=== PATIENT | male | born 1995 | race Asian ===

== ENCOUNTER 2016-12-24 18:29 | Emergency (ER) | payer OTHER ==
[~2016-12-24] VITALS: Ht 175 cm; Wt 69.1 kg
[~2016-12-24 18:29] MED LIST: AMOXICILLIN 50500 MG PO; AMOXICILLIN 8751 TAB PO; NORCO 325 MG-51 TAB PO; PEPCID 20MG TAB20 MG PO; PREDNISONE20 MG PO; ROBITUSSIN A-C S1 M1 PO; ZITHROMAX Z PA250 MG PO; ZYRTEC 10MG10 MG PO; [UNRECOGNIZED DRUG - REMARK]
[2016-12-24 18:36] VITALS: BP 115/60; PULSE 97; TEMP 98.9
[2016-12-24] MEDS ORDERED: NORCO 325 MG-51 TAB PO (19:56)
[2016-12-24] MEDS ORDERED: FLEXERIL 1010 MG/TAB PO (19:56)
== END 2016-12-24 20:12 | disposition home or self-care (01) ==
LOC: COL.ER 18:29
DX: M54.5 Low back pain (principal); X50.0XXA Overexertion from strenuous movement or load, initial encounter; Y93.B3 Activity, free weights
CPT/HCPCS: J1885; J2360

== ENCOUNTER → 2017-02-16 | Outpatient (CLI) | payer OTHER ==
[~2017-02-16] MED LIST changes: +FLEXERIL 1010 MG/TAB PO
== END ==
LOC: COL.RAD 08:27
DX: R10.13 Epigastric pain (principal); R11.0 Nausea
CPT/HCPCS: A9541

== ENCOUNTER 2018-07-14 21:20 | Emergency (ER) | payer OTHER ==
[~2018-07-14] VITALS: Ht 182 cm; Wt 75.0 kg
[2018-07-14 21:23] VITALS: TEMP 99.3
[2018-07-14 21:53] LABS: BASO # 0.1 (0.0-0.2); BASO % 1.1 % (0.0-2.0); EOS # 0.1 (0.0-0.7); EOS % 2.1 % (0-4.0); GRAN % 49.9 % (42.2-75.2); HEMATOCRIT 43.7 % (42.0-52.0); HEMOGLOBIN 14.9 g/dl (13.5-18.0); LYMPH # 2.4 (1.2-3.4); LYMPH % 39.5 % (20.0-51.0); MEAN CELL VOLUME 85 fl (80.0-100.0); MEAN CORPUSCULAR HEMOGLOBIN 29 pg (27.0-31.0); MEAN CORPUSCULAR HGB CONC 34 g/dl (33.0-37.0); MEAN PLATELET VOLUME 9.3 fl (7.4-10.4); MONO # 0.4 (0.1-0.6); MONO % 6.7 % (1.7-9.3); PLATELET COUNT 202 K/mm3 (130-400); RED BLOOD COUNT 5.12 M/mm3 (4.20-5.60); REDCELL DISTRIBUTION WIDTH-CV 12.5 % (11.5-14.5)
[2018-07-14 22:05] LABS: ALANINE AMINOTRANSFERASE 38 U/L (21-72); ALBUMIN 4.2 gm/dL (3.5-5.0); ALKALINE PHOSPHATASE 58 U/L (50-136); ANION GAP 13 mmol/L (7-16); AST,SGOT 33 U/L (15-37); BILIRUBIN,TOTAL 0.2 mg/dL (0.0-1.0); BLOOD UREA NITROGEN 13 mg/dL (9-20); CARBON DIOXIDE 27 mmol/L (22-30); CHLORIDE 100 mmol/L (98-107); CREATININE, serum 0.81 mg/dL (0.66-1.25); GLUCOSE 122 mg/dL (74-106); LIPASE 76 U/L (23-300); POTASSIUM 3.7 mmol/L (3.4-5.0); SODIUM 139 mmol/L (137-145); TOTAL PROTEIN 6.9 gm/dL (6.4-8.2)
[2018-07-14 22:14] LABS: TROPONIN-I < 0.012 ng/mL (0.000-0.034)
[2018-07-14 23:11] VITALS: BP 105/63; PULSE 72
== END 2018-07-14 23:20 | disposition home or self-care (01) ==
LOC: COL.ER 21:20
PROVIDERS: Emergency Medicine
DX: R55 Syncope and collapse (principal)
CPT/HCPCS: J1885; J2405; J7030

== ENCOUNTER 2018-10-20 02:52 | Emergency (ER) | payer OTHER ==
[~2018-10-20] VITALS: Ht 80 cm; Wt 72.0 kg
[2018-10-20 02:55] VITALS: BP 112/68; TEMP 97.4
[2018-10-20 03:14] VITALS: PULSE 69
== END 2018-10-20 03:18 | disposition home or self-care (01) ==
LOC: COL.ER 02:52
DX: K02.9 Dental caries, unspecified (principal)